=== PATIENT | female | born 1955 | race Caucasian/White ===

== ENCOUNTER 2023-07-01 09:07 | Day surgery (SDC) | payer OTHER, BC ==
[2023-07-01] MEDS ORDERED: BACITRACIN OINTMENT 14 GM TUBE TOP ONE (09:22)
[2023-07-01] MEDS ORDERED: LIDOCAINE HCL/EPINEPHRINE 20 ML MDV ONE (09:22)
[2023-07-01] MEDS ORDERED: Ringers Lactate 1,000 ML IV ONE ×2 (09:22→13:22)
[2023-07-01] MEDS ORDERED: CEFAZOLIN SODIUM 2 GM/VIAL ONE (09:22)
[2023-07-01] MEDS ORDERED: LIDOCAINE 2% MPF 5 ML VIAL ONE (10:09)
[2023-07-01] MEDS ORDERED: propofoL 200 MG/20 ML VIAL IV ONE (10:09)
[2023-07-01] MEDS ORDERED: FENTANYL CITR 100 MCG/2 ML ONE (10:09)
[2023-07-01] MEDS ORDERED: ONDANSETRON 4 MG/2 ML VIAL ONE (10:09)
[2023-07-01] MEDS ORDERED: HYDROMORPHONE HCL 2 MG/ML inj ONE (10:25)
[2023-07-01] MEDS ORDERED: LANO/MINERAL OIL/PETRO 3.5 GM ONE (10:25)
[2023-07-01] MEDS ORDERED: dexAMETHasone 10 MG/ML VIAL ONE (11:14)
[2023-07-01] MEDS ORDERED: GLYCOPYRROLATE 0.2 MG/ML SYR ONE ×2 (11:23→13:02)
[2023-07-01] MEDS ORDERED: EPHEDRINE SULF 50 MG/ML VIAL ONE (11:23)
[2023-07-01] MEDS ORDERED: Mastisol Adhesive Liq ONE (14:09)
[2023-07-01 15:41] VITALS: O2SAT 95
--- NOTE | 2023-07-01 15:47 | RAD REPORT ---
EXAM DESCRIPTION: EDChest Single View07/01/2023 3:08 pm CLINICAL HISTORY: S/P INSPIRE PLACEMENT COMPARISON: Neck Soft Tissue dated 07/01/2023 TECHNIQUE: Portable AP view of the chest. FINDINGS: Right chest wall inspired device battery pack in place with electrode along the chest wall in satisfactory position. The lungs are clear apart from mild right perihilar atelectasis. Elevation of the right hemidiaphragm. No pneumothorax or effusion. The cardiomediastinal contours are unremar kable. IMPRESSION: No acute cardiopulmonary process. Findings as above.
--- NOTE | 2023-07-01 15:49 | RAD REPORT ---
EXAM DESCRIPTION: RAD - Neck Soft Tissue - 07/01/2023 3:08 pm CLINICAL HISTORY: No comparisons COMPARISON: Chest radiograph of the same day. TECHNIQUE: AP and lateral views of the neck soft tissues. FINDINGS: Inspired device electrode projects appropriately along the base of the tongue. Postsurgica l changes along the anterior neck. Airway is patent. IMPRESSION: As above.
[2023-07-01 17:48] VITALS: BP 143/83; TEMP 97.3
--- NOTE | 2023-07-05 11:29 | OP ---
Date of Procedure: 07/01/2023 Surgeon: CHRISTELLE VILLALTA Preoperative Diagnoses: 1. Chronic obstructive sleep apnea, intolerant to CPAP therapy. 2. Body mass index 29.0 to 29.9. 3. Ankyloglossia. Postoperative Diagnoses: 1. Chronic obstructive sleep apnea, intolerant to CPAP therapy. 2. Body mass index 29.0 to 29.9. 3. Ankyloglossia. Procedures: 1. Drug-induced sleep endoscopy. 2. Lingual frenulectomy. 3. Twelfth cranial nerve hypoglossal stimulation implant with placement of chest wall respiratory sensor. Anesthesia: General endotracheal anesthesia was administered. I also infiltrated approximately 10 mL of 1% lidocaine with 1:100,000 epinephrine at the site of the lingual frenulectomy, right upper neck, and right upper chest incision sites. Specimens: None. Estimated Blood Loss: Less than 10 mL. 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 Protrusion of tongue intraoperatively and excellent visualization of the hypoglossal protrusion nerve branches and retractor branches with excellent separation of both. Complications: None. Disposition: Stable. The patient tolerated the procedure well. Indication For Procedure: The patient is a pleasant 67-year-old female, who presented to my outpatient clinic with at least a 10-year use of nightly CPAP in which she was unable to tolerate the mask beyond 4 hours nightly. She continued to pull the mask off and this resulted in daytime fatigue, excessive sleepiness, and periodic limb movement while asleep. Sleep study demonstrated obstructive sleep apnea and met the criteria for drug-induced sleep endoscopy as most events were obstructive in nature. These are indications to bring the patient to proceed with the above-mentioned procedures. She understood. All questions were answered. Risks versus benefits and complications were explained in detail and a consent form was signed which was placed the chart. Description Of Procedure: The patient was transferred from the preoperative holding area to the operative suite by Department of Anesthesia and placed on the operating table supine and sedated in the normal fashion. Approximately 50 mg of propofol was given and a flexible nasopharyngoscope was introduced into the right nasal cavity and directed along the floor back to the level of the velopharynx. Examination of the velopharyngeal lumen was easily seen and as the patient was weaning from anesthesia, we were able to visualize the velopharyngeal closure. The closure pattern was predominantly anterior/posterior with no evidence of concentric or lateral wall collapse. After visualizing the velopharynx for approximately 5 minutes, we were convinced that she had the appropriate closure pattern to move on to the lingual frenulectomy and hypoglossal nerve stimulator. The scope was completely removed. The patient tolerated the procedure well. Next, the patient was intubated and the tube was taped to the left oral commissure. I injected a few mL of 1% lidocaine with 1:100,000 epinephrine at the lingual frenulectomy site. I then removed a wedge of lingual frenulum mucosa with curved iris scissors. Hemostasis was achieved with eye cautery. The mucosal edges were then reapproximated with 5-0 chromic gut suture in a continuous running fashion. Next, a shoulder roll was placed at the patient's neck and the patient was prepped and draped in the usual sterile fashion after infiltrating approximately 6 to 8 mL of 1% lidocaine with 1:100,000 epinephrine at the right upper neck and right upper chest incision sites. The head was turned to the left. Prior to prepping and draping, the electrodes were placed in the genioglossus and hypoglossal muscles and connected to the nerve integrity monitoring system for intraoperative nerve monitoring. A modified submandibular incision was made in the right upper neck approximately 2 cm below the mandible. Dissection was carried down through the subcutaneous tissue and platysma. The anterior/inferior border of the submandibular gland was identified as well as the digastric tendon. The submandibular gland and the overlying fascia with marginal mandibular nerve were retracted posteriorly. The digastric tendon was retracted inferiorly. Dissection continued down into the digastric triangle on the posterior border. The mylohyoid was freed up and retracted anterosuperiorly. With balance retraction, the hypoglossal nerve was identified in its usual fashion and was dissected up towards the floor of the mouth. The superior/posterior branches innervating the hypoglossal muscle were identified using the Nim stimulator and anatomical cues. The cup electrode for the hypoglossal nerve stimulator was placed distally to these branches innervating genioglossus, transverse, cortical, cervical, or C1 branches of the hypoglossal nerve. Stimulation lead was anchored to the digastric tendon using two 3-0 silk sutures and the lead body slack between the cuff and the anchor was gently tacked due to submandibular gland. A second 5 cm incision was made in the right upper chest through the second intercostal space, approximately 3 cm lateral to the sternal margin. Dissection was carried down through the skin and subcutaneous tissue to the fascia of the pectoralis muscle. An inferior pocket for the generator was created deep to the subcutaneous layer and superficial to the fascial pectoralis muscle. The pectoralis major fascia was dissected directly over the second intercostal space with subsequent blunt dissection through the muscle. The pectoralis major/minor was then retracted to expose the fatty layer just superficial to the external intercostals. A fatty layer was carefully swept away with peanuts to expose the external intercostal muscles. A throwdown base knot was placed to the fascia of the external intercostal just lateral to the anterior external membrane using 3- 0 silk suture. A fasciotomy through the external intercostals was performed approximately 5 mm lateral to the suture knot, and the respiratory sense lead was advanced with the center facing the pleura into the inner fascial plane between the external and the internal intercostal muscles. The primary angle was sutured into place with 3-0 silk on the external intercostals. Second anchor was then sutured with 3-0 silk to the pectoralis major allowing adequate slack between the anchors. Stimulation lead was then tunneled in a subplatysmal plane with blunt dissection under direct visualization, brought out into the subclavicular pocket, where both the stimulation lead and the respiratory sensing lead were connected to the implantable pulse generator, using the 2-person 3-hand approach. The implantable pulse generator was placed in the subclavicular pocket ensuring lead body was due to the generator and secured with the use of air knots to the pectoralis fascia using 2-0 silk sutures. Diagnostic evaluation confirmed good placement. Stimulation cuff was demonstrated by activation of the genioglossus, and transverse and vertical muscles resulting in stiffened tongue protrusion, confirmed visually. Diagnostic evaluation also confirmed good respiratory sensor placement as demonstrated by the sensing waveform with good rise and fall associated with patient respirations. At this point, all the wounds were thoroughly irrigated and closed in 3 layers with deep 3-0 Vicryl sutures in a simple interrupted fashion followed by dermal and subcutaneous tissue closure with 4-0 Monocryl in a simple interrupted fashion. Epidermis was reapproximated with 4-0 Monocryl in a subcuticular fashion. Mastisol and Steri-Strips were applied followed by pressure dressings. The patient was then awakened, extubated, and transferred to the recovery room in stable condition. A stat AP chest and lateral neck x-rays were performed and demonstrated good adequate visualization of the lead and generator and respiratory sensing lead and there was no evidence of pneumothorax. The patient was subsequently discharged home on antibiotic and analgesic medication. I was present for and performed the entire procedure. She will follow up in 1 week or sooner if needed. REBEKAH/GRACIE Voice ID: [id number] Report ID: [id number] SWATI
== END 2023-07-01 17:15 | disposition home or self-care (01) ==
LOC: OR 09:07
PROVIDERS: ATTEND Otolaryngology Facial Plastic Surgery
PROC: 0CJS8ZZ Inspection of Larynx, Via Natural or Artificial Opening Endoscopic (ICD-10-PCS; principal; 2023-07-01 10:00)
PROC: 0CB7XZZ Excision of Tongue, External Approach (ICD-10-PCS; 2023-07-01 10:00)
PROC: 0JH63MZ Insertion of Stimulator Generator into Chest Subcutaneous Tissue and Fascia, Percutaneous Approach (ICD-10-PCS; 2023-07-01 10:00)
DX: G47.33 Obstructive sleep apnea (adult) (pediatric) (principal); Q38.1 Ankyloglossia; Z68.29 Body mass index [BMI] 29.0-29.9, adult
CPT/HCPCS: 80048; 36415; 71045; 70360; 42975; 41115; 64582; J2704; J2001; J1170; J3010; J1100; J2405; J7120 ×2

== ENCOUNTER → 2023-08-14 | Emergency (ER) | payer OTHER, BC ==
[~2023-08-14] MED LIST: LEVOTHYROXINE SOD 0.075 MG TAB ONE; PROMETHAZINE 25 MG TABLET ONE; TRAMADOL HCL 50 MG TAB ONE
--- OUTSIDE RECORDS SUMMARY | 2023-08-14 22:12 | XMS REPORT | Continuity of Care Document ---
Author Name Unknown Address [address] [place] [address] [facility] thconnect Address [address] [place] [address] Care Team Providers Care [employer] Fund Analyst Name Role Phone Mady Alegria Attending Clinician Unavail able Encounters Start Date/Time End Date/Time Encounter Type Admission Type Attending Clinicians Care Facility Care Department Encounter ID Source 2023-07-15 09:54:01 Outpatient Mady Alegria [facility] [id number] [facility] 2023-06-18 14:49:01 Outpatient Mady Alegria [facility] [id number] [facility] 2023-03-19 08:09:00 Outpatient Mady Alegria [facility] [id number] [facility] 2023-03-02 10:00:01 Outpatient Mady Alegria [facility] [id number] [facility] 2023-03-01 13:55:01 Outpatient Mady Alegria [facility] [id number] [facility]
[2023-08-14 23:18] LABS: Absolute Eosinophils 0.3 K/uL (0-0.5); Absolute Lymphocytes (CBC) 2.2 K/uL (0.7-4.9); Absolute Monocytes 0.5 K/uL (0.1-1.3); Absolute Neutrophil 2.1 K/uL (1.8-8.0); Basophils % 0.6 % (0-1.3); Eosinophils % 5.9 % (0-4.4); Hemoglobin 12.3 g/dL (12.0-15.0); Lymphocytes % 42.7 % (15.3-44.8); MCH 29.6 pg (27.0-35.0); MCHC 33.3 g/dL (32.0-36.0); MCV 88.8 fL (80-100); MPV 10.6 fL (7.6-11.3); Monocytes % 9.9 % (3.3-12.3); Neutrophils % 40.9 % (41.7-73.7); Platelets 180 thou/uL (152-406); RBC Red Blood Cell Count 4.16 M/uL (3.86-4.86); Red Cell Distribution Width 16.5 % (12.1-15.2)
[2023-08-14 23:23] LABS: PT Prothrombin Time 11.5 SECONDS (9.5-12.5); Protime INR 1.05
[2023-08-14 23:35] LABS: SARS-CoV-2 Antigen CONTROL BLUE LINE VIS/BG OK; SARS-CoV-2 Antigen Rapid Res Negative (Negative)
[2023-08-14 23:44] LABS: Albumin 3.7 g/dL (3.4-5.0); Albumin/Globulin Ratio 1.1 (1.1-1.8); Anion Gap 8.6 mEq/L (5.0-15.0); Bilirubin Direct 0.2 mg/dL (0-0.2); Bilirubin Total 1.2 mg/dL (0.2-1.0); Globulin 3.3 g/dL (2.3-3.5); Troponin High Sensitivity 7.8 pg/mL (<58.9)
[2023-08-14 23:45] LABS: Magnesium 2.3 mg/dL (1.6-2.4); Potassium 3.6 mEq/L (3.5-5.1); Thyroid Stimulating Hormone 95.2 uIU/mL (0.358-3.740)
[2023-08-15 00:52] LABS: Specific Gravity 1.019 (1.005-1.030); Sqamous Epithelial <5 /HPF (None Seen); Urine Bacteria <20 /HPF (<20); Urine Bilirubin NEGATIVE (Negative); Urine Blood 1+ (Negative); Urine Clarity Extremely Turbid (Clear); Urine Color Yellow (Yellow); Urine Culture Reflex Order REFLEXED; Urine Glucose NEGATIVE (Negative); Urine Ketones NEGATIVE (Negative); Urine Micro Reflex YN NO BILL MICROSCOPIC; Urine Mucus 2+ /HPF (None Seen); Urine Nitrite 2+ (Negative); Urine Protein 1+ (Negative); Urine RBC 21-50 /HPF (None Seen); Urine Urobilinogen Normal (Normal); Urine WBC >50 /HPF (<5); Urine pH 5.5 (5.0-7.0)
--- NOTE | 2023-08-15 01:47 | ER ---
Nurse's Notes [facility] Name: Jenny Yarbrough Age: 68 yrs Sex: Female : 1955 Arrival Date: 08/14/2023 Time: 22:10 Bed 20 Private MD: Mady Alegria Diagnosis: Hypothyroidism, unspecified;UTI/ Urinary tract infection, site not specified Presentation: 08/13 22:29 Chief complaint: Patient states: has been feeling generally weak. drinking and eating rv normally, urine output is decreased. Coronavirus screen: At this time, the client does not indicate any symptoms associated with coronavirus-19. Ebola Screen: No symptoms or risks identified at this time. No acute neurological deficit is noted. Initial Sepsis Screen: Does the patient meet any 2 criteria? No. Patient's initial sepsis screen is negative. Does the patient have a suspected source of infection? No. Patient's initial sepsis screen is negative. Risk Assessment: Do you want to hurt yourself or someone else? Patient reports no desire to harm self or others. Onset of symptoms was August 14, 2023. 22:29 Method Of Arrival: Ambulatory rv 22:29 Acuity: CHRIS 2 rv Triage Assessment: 22:32 General: Appears comfortable, Behavior is calm, cooperative. Pain: Denies pain. Neuro: rv Reports weakness. Cardiovascular: Capillary refill < 3 seconds Patient's skin is warm and dry. Respiratory: Airway is patent Respiratory effort is even, unlabored. GI: No signs and/or symptoms were reported involving the gastrointestinal system. Derm: Skin is intact. Historical: - Allergies: 22:32 Iodine; rv - PMHx: 22:32 Sleep apnea; Rheumatoid arthritis; neuropathy; Osteoarthritis; thyroid; rv - Immunization history:: Adult Immunizations up to date. - Social history:: Smoking status: Patient denies any tobacco usage or history of. - Family history:: not pertinent. Screenin/17 02:23 [facility] ED Fall Risk Assessment (Adult) History of falling in the last 3 months, rv including since admission No falls in past 3 months (0 pts) Score/Fall Risk Level 0 - 2 = Low Risk Oriented to surroundings, Maintained a safe environment, Educated pt \T\ family on fall prevention, incl call for assistance when getting out of bed, Assessed \T\ reinforced patient's understanding of fall precautions. Abuse screen: Denies threats or abuse. Denies injuries from another. Nutritional screening: No deficits noted. Tuberculosis screening: No symptoms or risk factors identified. Assessment: 08/13 23:00 General: Appears in no apparent distress. Behavior is calm, cooperative. rv 23:00 Pain: Denies pain. Neuro: Level of Consciousness is awake, alert, obeys commands, rv Oriented to person, place, time, situation. Vital Signs: 22:29 BP 164 / 87; Pulse 71; Resp 17; Temp 98.8; Pulse Ox 100% ; rv 08/14 02:24 BP 145 / 77; Pulse 56; Resp 17; Temp 98; Pulse Ox 99% on R/A; rv ED Course: 08/13 22:12 Patient arrived in ED. mr 22:12 Mady Alegria is Private Physician. mr 22:13 Raghav Velázquez MD is Attending Physician. sp4 22:29 Troy Joaquin RN is Primary Nurse. rv 22:32 Triage completed. rv 22:32 Arm band placed on right wrist. rv 22:42 XRAY Chest (1 view) In Process Unspecified. EDMS 23:00 Patient has correct armband on for positive identification. Client placed on continuous rv cardiac and pulse oximetry monitoring. NIBP monitoring applied. 23:00 Inserted saline lock: 20 gauge in right forearm, using aseptic technique. Blood rv collected. 23:00 No provider procedures requiring assistance completed. rv 08/14 01:46 Mady Alegria is Referral Physician. sp4 02:24 IV discontinued, intact, bleeding controlled, No redness/swelling at site. Pressure rv dressing applied. Administered Medications: 01:54 Drug: traMADol PO 100 mg PO once Route: PO; rv 02:22 Follow up: Response: Medication administered at discharge. rv 01:54 Drug: Promethazine PO 25 mg PO once Route: PO; rv 02:22 Follow up: Response: Medication administered at discharge. rv 02:22 Drug: Synthroid PO 150 mcg PO once Route: PO; rv 02:22 Follow up: Response: Medication administered at discharge. rv Medication: 02:23 VIS not applicable for this client. rv Outcome: 01:46 Discharge ordered by . sp4 02:24 Discharged to home ambulatory, rv 02:24 Condition: good 02:24 Discharge instructions given to patient, family, Instructed on discharge instructions, follow up and referral plans. medication usage, Demonstrated understanding of instructions, follow-up care, medications, Prescriptions given X 4, 02:25 Patient left the ED. rv Signatures: Dispatcher [employer] [facility] Pamela Hererra Reg Reg mr Vicente, Ronaldo, RN RN Raghav Ryan MD MD sp4
--- NOTE | 2023-08-15 01:47 | EDPHYS ---
Physician Documentation [facility] Name: Jenny Yarbrough Age: 68 yrs Sex: Female : 1955 Arrival Date: 08/14/2023 Time: 22:10 Bed 20 Private MD: Mady Alegria ED Physician Raghav Velázquez HPI: 08/13 22:13 This 68 yrs old Female presents to ER via Unassigned with complaints of sp4 Urinary Problem, Weakness. 08/14 03:19 Patient presents with generalized weakness, also reports decrease in urination. sp4 Historical: - Allergies: 08/13 22:32 Iodine; rv - PMHx: 22:32 Sleep apnea; Rheumatoid arthritis; neuropathy; Osteoarthritis; thyroid; rv - Immunization history:: Adult Immunizations up to date. - Social history:: Smoking status: Patient denies any tobacco usage or history of. - Family history:: not pertinent. ROS: 08/14 03:19 Constitutional: Positive generalized weakness positive decrease in urination sp4 All other systems are negative, Exam: 03:19 Constitutional: This is a well developed, well nourished patient who is awake, alert, sp4 and in no acute distress. Head/Face: Normocephalic, atraumatic. Eyes: Pupils equal round and reactive to light, extra-ocular motions intact. Lids and lashes normal. Conjunctiva and sclera are not injected. Cornea within normal limits. Periorbital areas with no swelling, redness, or edema. ENT: Nares patent. No nasal discharge, no septal abnormalities noted. Tympanic membranes are normal and external auditory canals are clear. Oropharynx with no redness, swelling, or masses, exudates, or evidence of obstruction, uvula midline. Mucous membranes moist. Neck: Trachea midline, no thyromegaly or masses palpated, and no cervical lymphadenopathy. Supple, full range of motion without nuchal rigidity, or vertebral point tenderness. Chest/axilla: Normal chest wall appearance and motion. Nontender with no deformity. No lesions are appreciated. Cardiovascular: Regular rate and rhythm with a normal S1 and S2. No gallops, murmurs, or rubs. Normal PMI, no JVD. No pulse deficits. Respiratory: Lungs have equal breath sounds bilaterally, clear to auscultation and percussion. No rales, rhonchi or wheezes noted. No increased work of breathing, no retractions or nasal flaring. Abdomen/GI: Soft, with normal bowel sounds. No distension or tympany. No guarding or rebound. No evidence of tenderness throughout. Back: No spinal tenderness. No costovertebral tenderness. Skin: Warm, dry with normal turgor. Normal color with no rashes, no lesions, and no evidence of cellulitis. MS/ Extremity: Pulses equal, no cyanosis. Neurovascular intact. Full, normal range of motion. Neuro: Awake and alert, GCS 15, oriented to person, place, time, and situation. Cranial nerves II-XII grossly intact. Motor strength 5/5 in all extremities. Sensory grossly intact. Psych: Awake, alert, with orientation to person, place and time. Behavior, mood, and affect are within normal limits 03:19 ECG was reviewed by the Attending Physician. sp4 Vital Signs: 08/13 22:29 BP 164 / 87; Pulse 71; Resp 17; Temp 98.8; Pulse Ox 100% ; rv 08/14 02:24 BP 145 / 77; Pulse 56; Resp 17; Temp 98; Pulse Ox 99% on R/A; rv MDM: 08/13 22:21 Patient medically screened. sp4 08/14 01:17 ED course: EXAM: XR Chest 1 ViewAP HISTORY: weakness COMPARISON: Chest 1 ViewAP sp4 07/01/2023 report without image TECHNIQUE: Chest 1 ViewAP FINDINGS: Minimal aortic arch calcification. Heart size and pulmonary vessels within normal limits. Lungs clear without evidence of consolidation, mass, or significant pulmonary edema. No significant pleural effusion or pneumothorax. Osteopenia or diffuse decreased bone density. Neurostimulator pulse generator overlies right chest wall with lead coursing towards right neck. IMPRESSION: Unremarkable chest radiograph. . 03:19 Data reviewed: vital signs, nurses notes, lab test result(s), EKG, radiologic studies, sp4 plain films. 03:19 Consideration of Admission/Observation Escalation of care including sp4 admission/observation considered. ED course: Stable for discharge home to restart her Synthroid p.o. patient was referred to Dr. Diana with endocrinology. 08/13 22:21 Order name: Basic Metabolic Panel; Complete Time: 01:13 sp4 08/13 22:21 Order name: CBC with Diff; Complete Time: :08/13 22:21 Order name: LFT's; Complete Time: :08/13 22:21 Order name: Magnesium; Complete Time: :08/13 22:21 Order name: NT PRO-BNP; Complete Time: :08/13 22:21 Order name: PT-INR; Complete Time: :08/13 22:21 Order name: Troponin HS; Complete Time: :08/13 22:21 Order name: TSH; Complete Time: :08/13 22:21 Order name: Urinalysis W/Microscopic; Complete Time: :08/13 22:21 Order name: T4 Free; Complete Time: :08/13 22:22 Order name: Lipase; Complete Time: :08/13 22:22 Order name: Blood Culture Adult (2) sp4 08/13 22:22 Order name: Lactate w/ 2H reflex if indic.; Complete Time: :08/13 22:23 Order name: SARS RAPID; Complete Time: :08/13 22:23 Order name: Influenza Screen (a \T\ B); Complete Time: :08/13 22:23 Order name: CRP; Complete Time: :08/14 01:14 Order name: Urine Culture EDWA 08/13 22:21 Order name: XRAY Chest (1 view) sp4 08/13 22:21 Order name: EKG; Complete Time: 22:22 08/13 22:21 Order name: Cardiac monitoring; Complete Time: 23:23 08/13 22:21 Order name: EKG - Nurse/Tech; Complete Time: 23:23 08/13 22:21 Order name: IV Saline Lock; Complete Time: 23:08/13 22:21 Order name: Labs collected and sent; Complete Time: 23:08/13 22:21 Order name: O2 Per Protocol; Complete Time: 23:23 08/13 22:21 Order name: O2 Sat Monitoring; Complete Time: 23:23 EC:19 Rate is 60 beats/min. Rhythm is regular, Normal Sinus Rhythm. QRS [place] is Normal. OR sp4 interval is normal. QRS interval is normal. QT interval is normal. No Q waves. T waves are Normal. No ST changes noted. Clinical impression: No evidence of ischemia. Interpreted by me. Reviewed by me. Administered Medications: 01:54 Drug: traMADol PO 100 mg PO once Route: PO; rv 02:22 Follow up: Response: Medication administered at discharge. rv 01:54 Drug: Promethazine PO 25 mg PO once Route: PO; rv 02:22 Follow up: Response: Medication administered at discharge. rv 02:22 Drug: Synthroid PO 150 mcg PO once Route: PO; rv 02:22 Follow up: Response: Medication administered at discharge. rv Disposition Summary: 08/15/23 01:46 Discharge Ordered Notes: Location: Home sp4 Problem: new sp4 Symptoms: have improved sp4 Condition: Stable sp4 Diagnosis - Hypothyroidism, unspecified sp4 - UTI/ Urinary tract infection, site not specified sp4 Followup: sp4 - With: Mady Alegria - When: 7 - 10 days - Reason: Recheck today's complaints Discharge Instructions: - Discharge Summary Sheet sp4 - Hypothyroidism sp4 Forms: - Patient Portal Instructions sp4 Prescriptions: - Synthroid 150 mcg Oral tablet - take 1 tablet ORAL route daily; 60 tablet; Refills: 0, Product Selection sp4 Permitted - Cephalexin 500 mg Oral Capsule - take 1 capsule ORAL route every 12 hours for 10 days; 20 capsule; Refills: 0, sp4 Product Selection Permitted - Tramadol 50 mg Oral tablet - take 1 tablet ORAL route every 8 hours as needed; 20 tablet; Refills: 0, sp4 Product Selection Permitted - promethazine 25 mg Oral tablet - take 1 tablet ORAL route every 8 hours As needed PRN nausea; 20 tablet; sp4 Refills: 0, Product Selection Permitted Signatures: Dispatcher [employer] Troy Medrano RN RN rv Potepalov, Sergey, MD MD sp4
[2023-08-15 02:55] VITALS: BP 145/77; TEMP 98; O2SAT 99
--- NOTE | 2023-08-16 11:59 | RAD REPORT ---
EXAM DESCRIPTION: RAD - Chest Single View - 08/14/2023 10:40 pm CLINICAL HISTORY: Weakness COMPARISON: Chest 1 View AP 07/01/2023 report without image TECHNIQUE: Chest 1 View AP FINDINGS: Minimal aortic arch calcification. Heart size and pulmonary vessels within normal limits. Lungs clear without evidence of consolidation, mass, or significant pulmonary edema. No significant pleural effusion or pneumothorax. Osteopenia or diffuse decreased bone density. Neurostimulator pulse generator overlies right chest wall with lead coursing towards right neck. IMPRESSION: Unremarkable chest radiograph. Electronically signed by: Bola Rutherford MD 08/14/2023 11:52 PM CDT Due to temporary technical issues with the PACS/Fluency reporting system, reports are being signed by the in house radiologist without review as a courtesy to ensure prompt reporting. The interpreting r adiologist is fully responsible for the content of the report.
--- NOTE | 2023-08-16 14:25 | EKG ---
Test Date: 2023-08-14 Test Time: 23:08:35 [employer] Supervisor: ELIER MEASUREMENT RESULTS: Intervals: Rate: 60 IN: 178 QRSD: 84 QT: 404 QTc: 404 [place]: P: 43 IN: 178 QRS: 56 T: 268 INTERPRETIVE STATEMENTS: Normal sinus rhythm Nonspecific T wave abnormality Abnormal ECG Compared to ECG 03/24/2023 14:09:38 T-wave abnormality now present Electronically Signed On 08-16-23 14:23:52 CDT by Julius Thompson
== END ==
LOC: ER 22:10
DX: N39.0 Urinary tract infection, site not specified (principal); E03.9 Hypothyroidism, unspecified; Z11.52 Encounter for screening for COVID-19; Z91.048 Other nonmedicinal substance allergy status
CPT/HCPCS: 36415; 71045; 80048; 80076; 83605; 83690; 83735; 83880; 84439; 84443; 84484; 85025; 85610; 86140; 87040; 87804; 87811; 93005; 99284